=== PATIENT | female | born 1965 | race Caucasian/White ===

== ENCOUNTER 2017-07-26 20:32 | Emergency (ER) | payer BC ==
--- NOTE | 2017-07-26 20:58 | Emergency Department Record ---
History of Present Illness - General Chief Complaint: Recheck - Other Stated Complaint: SOB Time Seen by Provider: 07/26/17 20:49 Source: Patient, Family Mode of arrival: Ambulatory - History of Present Illness Initial Comments: 51 yo female presents with feeling fatigue, loss of appetite, weak, lightheaded. She reports her initial symptoms started in January. She saw her PCP Nisreen Altamirano in late summer. She states since then she has had a steady decline of energy and appetite. She has not been back to see Nisreen Altamirano since. She did go to an urgent care in May. She was referred for carotid dopplers and a cardiac echo. She reports that those tests were negative. Today she went to the [facility] for weakness, lightheaded, no appetite. She was referred to the ED. Complaint: Other Onset/Timin -: Days(s) Initial Visit For: Other (Weakness, lightheaded, short of breath) Returns Today for: Called because of abnormal lab/test Associated Symptoms: Malaise, Nausea - Related Data Allergies Allergy/AdvReac Type Severity Reaction Status Date / Time azithromycin Allergy PT UNSURE Verified 07/26/17 20:44 OF REACTION erythromycin base Allergy ALTERED Verified 07/26/17 20:44 [From Erythrocin] MENTAL STATUS [email or web address] Allergy VOMITING Verified 07/26/17 20:44 tetracycline Allergy ALTERED Verified 07/26/17 20:44 MENTAL STATUS organden Allergy HIVES Uncoded 07/26/17 20:44 Travel Screening - Travel/Exposure Within Last 30 Days Have you traveled within the last 30 days?: No - Travel/Exposure Within Last Year Have you traveled outside the [place] in the last year?: No - Additonal Travel Details Have you been exposed to anyone with a communicable illness?: No - Travel Symptoms Symptom Screening: None Review of Systems Constitutional: Reports: Malaise, Weakness. Denies: Chills, Fever Eyes: Denies: Eye discharge, Eye pain, Photophobia, Vision change ENT: Denies: Congestion, Dental pain, Ear pain, Epistaxis, Throat pain Respiratory: Reports: Dyspnea. Denies: Cough, Hemoptysis, Stridor, Wheezes Cardiovascular: Reports: Edema (chronic unchanged). Denies: Chest pain, Palpitations, Syncope Endocrine: Reports: Fatigue. Denies: Polydipsia, Polyuria Gastrointestinal: Reports: Nausea. Denies: Abdominal pain, Constipation, Diarrhea, Hematemesis, Hematochezia, Melena, Vomiting Genitourinary: Denies: Dysuria, Urgency Musculoskeletal: Denies: Arthralgia, Back pain, Joint swelling, Myalgia, Neck pain Skin: Reports: Change in color (pale). Denies: Bruising, Rash Neurological: Reports: Weakness (generalized). Denies: Abnormal gait, Confusion , Headache, Numbness, Seizure, Tingling, Tremors Psychiatric: Denies: Anxiety Hematological/Lymphatic: Denies: Anemia, Blood Clots, Easy bleeding, Easy bruising, Swollen glands Past Medical History - SOCIAL HISTORY Smoking Status: Never smoker Alcohol Use: None Drug Use: None - RESPIRATORY Hx Respiratory Disorders: No - CARDIOVASCULAR Hx Cardio Disorders: Yes Hx Deep Vein Thrombosis: Yes Hx Hypertension: Yes Comment:: high cholesterol - NEURO Hx Neuro Disorders: No - GI Hx GI Disorders: No - Hx Genitourinary Disorders: No - ENDOCRINE Hx Endocrine Disorders: Yes Hx Diabetes: Yes (borderline) Hx Thyroid Disease: Yes - MUSCULOSKELETAL Hx Musculoskeletal Disorders: No - PSYCH Hx Psych Problems: No - HEMATOLOGY/ONCOLOGY Hx Hematology/Oncology Disorders: Yes Comment:: lupus Family Medical History Any Significant Family History?: No Physical Exam - General General Appearance: Alert, Oriented x3, Cooperative, No acute distress Limitations: No limitations - Head Head exam: Atraumatic, Normocephalic, Normal inspection - Eye Eye exam: Normal appearance, PERRL, Scleral icterus (very faint). negative: Conjunctival injection, Periorbital swelling - ENT ENT exam: Normal exam, Mucous membranes moist Ear exam: Normal external inspection Nasal Exam: Normal inspection Mouth exam: Normal external inspection Teeth exam: Normal inspection Throat exam: Normal inspection. negative: Tonsillar erythema, Tonsillar exudate - Neck Neck exam: Normal inspection, Full ROM. negative: Lymphadenopathy, Tenderness - Respiratory Respiratory exam: Normal lung sounds bilaterally. negative: Respiratory distress, Rhonchi, Stridor, Wheezes - Cardiovascular Cardiovascular Exam: Regular rate, Normal rhythm, Normal heart sounds Peripheral Pulses: 2+: Radial (R), Radial (L) - GI/Abdominal GI/Abdominal exam: Soft. negative: Distended, Guarding, Rebound, Rigid, Tenderness - Rectal Rectal exam: Deferred - exam: Deferred - Extremities Extremities exam: Normal inspection, Full ROM, Normal capillary refill. negative: Calf tenderness, Joint swelling, Pedal edema, Tenderness - Back Back exam: Reports: Normal inspection, Full ROM. Denies: CVA tenderness (R), CVA tenderness (L), Muscle spasm, Rash noted, Tenderness - Neurological Neurological exam: Alert, CN II-XII intact, Oriented X3. negative: Altered, Motor sensory deficit - Psychiatric Psychiatric exam: Normal affect, Normal mood - Skin Skin exam: Pallor Course Vital Signs 07/26/17 20:35 Temperature 98.9 F Pulse Rate [ 87 Pulse Ox Probe] Respiratory 20 Rate Blood Pressure 139/55 [Left Arm] Pulse Ox 100 - Reevaluation(s) Reevaluation #1: The labs were reviewed The CBC had multiple abnormalities The Hgb is 6.1 The WBC is 2.6 with 38% N with ABN of 988 The PLT are 56 All three cell lines have declined since tests in January and May. 07/26/17 21:59 07/26/17 22:01 Rectal exam was negative for blood The Bili was 5 AST 65 ALT 38 Alk Phos 65 She was markedly orthostatic on exam with HR in the 110's and BP 78 systolic HCT was negative for acute bleed. 07/26/17 22:20 EKG 21:09 NSR rate 81, intervals normal, axis normal, ST diffuse t wave abnormalities. No old I DONG Antoine of [facility] [place] [facility] He accepts the patient for transfer She will be given one unit of PRBC prior to transfer. 07/26/17 23:14 Tolerating transfusion Waiting [place] [facility] 07/27/17 00:56 [facility] [place]. Patient is stable for transfer at this time Medical Decision Making - Lab Data Result diagrams: 07/26/17 21:14 07/26/17 21:14 Disposition Disposition: Transfer Clinical Impression: Pancytopenia, Near syncope, Orthostatic hypotension Disposition: Acute Care Hospital Transfer [place] [facility] [place] For Transfer: Pancytopenia Accepting Physician: Arash Time Discussed w/Accepting Physician: 22:24 Condition: (2) Stable Forms: Patient Portal Access Time of Disposition: 22:24 Quality - Quality Measures Quality Measures: N/A - Blood Pressure Screening Does Patient Have Any of the Following: No Blood Pressure Classification: Hypertensive Reading Systolic Measurement: 141 Diastolic Measurement: 75 Screening for High Blood Pressure: < Pre-Hypertensive BP, F/U Documented > [ [id number]] Pre-Hypertensive Follow-up Interventions: Referral to alternative/primary care provider.
[2017-07-26 21:16] LABS: HEMATOCRIT 18.2 % (35.0-47.0); MEAN CELL VOLUME 127.3 fl (81-97); MEAN CORPUSCULAR HGB CONC 33.5 g/dl (32-36); MEAN PLATELET VOLUME 11.9 fl (7.4-10.4); PLATELET COUNT 56 K/uL (130-400); RED BLOOD COUNT 1.43 M/uL (3.80-5.40); RED CELL DISTRIBUTION WIDTH 17.9 % (11.5-14.5); WHITE BLOOD COUNT W/O DIFF 2.6 K/uL (4.2-12.2)
[2017-07-26 21:24] LABS: MEAN CORPUSCULAR HEMOGLOBIN 42.6 pg (27-33)
[2017-07-26 21:25] LABS: BLOOD UREA NITROGEN 13 mg/dL (6-20); CREATININE 0.6 mg/dL (0.5-0.9); EST GLOMERULAR FILTRATION RATE > 60 mL/min; HEMOGLOBIN 6.1 gm/dl (11.6-16.0)
[2017-07-26 21:26] LABS: TOTAL PROTEIN 6.7 g/dL (6.6-8.7)
[2017-07-26 21:28] LABS: GLUCOSE,RANDOM 137 mg/dL (74-109)
[2017-07-26 21:29] LABS: INR 1.12; PARTIAL THROMBOPLASTIN TIME 23.3 SECONDS (24.5-39.1); PROTHROMBIN TIME (PATIENT) 12.1 SECONDS (9.5-12.1)
[2017-07-26 21:30] LABS: ALT/SGPT 38 U/L (<33)
[2017-07-26 21:31] LABS: ALB/GLOB RATIO 1.7 (1.1-1.8); ALBUMIN 4.2 g/dL (4.0-5.0); ALKALINE PHOSPHATASE 65 U/L (35-104); AST/SGOT 65 U/L (10.0-35.0)
[2017-07-26 21:31] LABS: URINE APPEARANCE CLEAR; URINE BILIRUBIN MODERATE (NEGATIVE); URINE BLOOD NEGATIVE (NEGATIVE); URINE COLOR YELLOW; URINE GLUCOSE (UA) NEGATIVE (NEGATIVE); URINE KETONE TRACE (NEGATIVE); URINE LEUKOCYTE ESTERASE SMALL (NEGATIVE); URINE NITRITE NEGATIVE (NEGATIVE); URINE PROTEIN NEGATIVE (NEGATIVE); URINE UROBILINOGEN >=8.0 E.U./dL (0.20 - 1.00)
[2017-07-26 21:38] LABS: URINE BACTERIA FEW; URINE EPITHELIAL CELLS 0 - 2 (FEW); URINE RBC 0 - 2 (NONE SEEN)
[2017-07-26 21:41] LABS: THYROID STIMULATING HORMONE 6.63 uIU/mL (0.270-4.20)
[2017-07-26 21:44] LABS: ABO GROUP O; RH TYPE POSITIVE
[2017-07-26 21:58] LABS: ANTIBODY SCREEN NEGATIVE (NEGATIVE)
[2017-07-26 22:16] LABS: IMMED. SPIN CROSSMATCH COMPATIBLE
--- NOTE | 2017-07-27 20:12 | CT SCAN REPORT ---
EXAM: CT SCAN HEAD WO CONTRAST HISTORY: DIZZINESS. TECHNIQUE: CT brain without. COMPARISON: None. FINDINGS: The globes are intact. The paranasal sinuses and mastoid air cells are unremarkable. No displaced or depressed skull fracture. No intra or extraaxial hemorrhage. CT is limited for the evaluation of acute infarct. No CT evidence for large or territorial acute infarct. No mass or midline shift. IMPRESSION: NEGATIVE EXAM. JOB NUMBER: [id number] MTDD
== END 2017-07-27 01:12 | disposition short-term general hospital (02) ==
LOC: ER 20:32
DX: D61.818 Other pancytopenia (principal); R55 Syncope and collapse; I95.1 Orthostatic hypotension; R06.02 Shortness of breath; R53.83 Other fatigue; I10 Essential (primary) hypertension
CPT/HCPCS: 36430; 70450; 80053; 81001; 83735; 84443; 84484; 85027; 85610; 85730; 86850; 86900; 86901; 93005; 93010; 99285